=== PATIENT | male | born 1990 | race Caucasian/White ===

== ENCOUNTER 2020-03-15 17:30 | Outpatient (CLI) | payer OTHER ==
--- NOTE | 2020-03-15 12:49 | SLEEP CARE CONSULTATION ---
Information from patient questionnaire entered by Aviva Pham. I have reviewed and concur with the information entered by Aviva Pham. This document represents the service I personally performed and the decisions made by me, Vaughn Glass MD, [facility]. History of Present Illness Service Date and Time: 03/15/2020 1040 Reason for Visit: New patient Chief Complaint: reports: Insomnia Date of Onset: 2009 Usual bedtime: 2029 Time it takes to fall asleep: 4-7 hours Number of times waking at night: 0 Toss, Turn, or Twitch while sleeping: Yes Recalls having dreams: No Usually gets out of bed at: 0545 Morning headache: No Sleepy or fatigued during the day: Yes (sometimes) Takes day naps: No Dreams during day naps: No Prior sleep studies: No Additional HPI information: To minimize the risk of COVID-19 exposure, the patient has requested and consented to this telephone visit. The patient also agrees to having his insurance billed. I had the pleasure of seeing Mr. Atnunez today regarding the possibility of him having a sleep disorder. As you know, he is a 30 year old gentleman who complains of insomnia for the past 10 years. He takes diphenhydramine. The patient tells me that he normally goes to bed around 8:30 pm, and it takes him approximately 4 7 hours to fall asleep. He has been told that he snores loudly at night. He has never been observed to stop breathing in his sleep. However, he sleeps alone. He can recall waking up on the average of 0 times during the night. There is not a lot of tossing and turning in his sleep. No somniloquy (sleep talking) or somnambulism (sleep walking). Generally there is no recollection of dreams. In the morning he usually gets up out of the bed around 5:30 a.m. (8 a.m.) not feeling refreshed nor rested. He usually does not have a morning headache. During the day he occasionally feels sleepy and fatigued. His score on [place] Sleepiness Scale is 2 out of 24. He has never fallen asleep while driving nor has had any accident due to sleepiness. He usually does not take naps during the day. He has never had sleep paralysis, experienced cataplexy or symptoms of restless leg syndrome. He reports having impaired concentration during the day. Subjective Initial [place] Sleepiness Scale score: 2 (in 2020) Social History The patient's occupation is active . Patient is Single and lives in [place]. Have you smoked in the past 12 months: No Years of smokin Quit date: 08/2019 Alcohol use: No Caffeine use: Yes Caffeine amount and frequency: 1-2 Red Bulls in AM Allergies and Home Medications Drug allergies reviewed: Yes (NKDA) Home medication list reviewed: Yes (diphenhydramine) Review of Systems Cardiovascular: denies: high blood pressure, palpitations, chest pain, irregular heart rate or pulse, leg or foot swelling, have to sleep sitting up, other Respiratory: denies: shortness of breath, wheeze, sputum production, chronic cough, other Gastrointestinal: denies: heartburn, difficulty swallowing, nausea, vomitting, diarrhea, abdominal pain, other Urinary: denies: incontinence, frequency, urgency, impotence, other Neurological: denies: headaches, seizure, head trauma, disorientation, speech dysfunction, gait or balance problems, fainting or unconsciousness, other Psychiatric: denies: Attention Deficit Hyperactivity, anxiety, depression, mood disorder, claustrophobia, other Ear/Nose/Throat: reports: sinus problems, wisdom teeth removed Endocrine: denies: thyroid disease, history of goiter, sluggishness, too hot or cold, excessive thirst, increased appetite, increased urination, unexplained weakness, other Musculoskeletal: reports: joint pain Immunologic: denies: sneezing, rash, itching, allergies to food or environment, other Physical Exam Vital signs obtained and entered by: N/A Height: 5 ft 10 in Weight: 180 lb Body Mass Index: 25.8 BMI Classification: Overweight Impression and Plan IMPRESSION: 1. Possible Obstructive Sleep Apnea, as suggested by history of loud and irregular snoring, unrefreshed sleep, cognitive impairment, and occasional daytime hypersomnolence. Pathophysiology of sleep-disordered breathing was discussed. I recommend proceeding to polysomnography to confirm the diagnosis and to assess severity. I informed the patient of what the sleep studies involve and after some discussion, he agreed to proceed. 2. 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 Because his spontaneous wakeup time on the weekends is 8:30 am, his physiologic bedtime is not until around midnight. Therefore, going to bed at 8:30 pm is at least 3.5 hours too early. The solution is delay bedtime and get up the same time every day, especially on the weekends. I advised him get up at 5:30 am every day, not go to bed until 10:30 pm. This gives him 7 hours for sleepinga lot more than his reported average of 4 hours a night of sleep. If he can adhere to this schedule, his insomnia should resolve in 3 4 weeks. Plan: 1. Schedule an in-laboratory polysomnography. 2. Maintain a regular wake up time and spend no more than 7 hours in bed at night. Avoid naps. He will try to not go to bed any earlier than 10:30 pm and wake up no later than 5:30 am, weekends included. 3. Return in 1 to 2 weeks after the study to discuss results and initiate therapy. Visit Type: Telehealth Video Video Type: Doximity Patient Location: Home Location of Provider: Home Patient agrees and consents to this telehealth visit type: Yes Patient agrees to have their insurance billed: Yes Time Spent with Patient (minutes): 15 Provider Statement: I spent 100% of the Telehealth Video Call with the patient with greater than 50% spent counseling the patient and coordination of care.
== END 2020-03-15 17:31 | disposition home or self-care (01) ==
LOC: SC 17:30
PROVIDERS: ATTEND Internal Medicine Pulmonary Disease
DX: R06.83 Snoring (principal); G47.00 Insomnia, unspecified; R41.89 Other symptoms and signs involving cognitive functions and awareness; G47.8 Other sleep disorders; G47.10 Hypersomnia, unspecified; E66.3 Overweight; Z68.25 Body mass index [BMI] 25.0-25.9, adult

== ENCOUNTER 2020-05-30 20:33 | Outpatient (CLI) | payer OTHER | END 2020-05-30 20:34 | disposition home or self-care (01) | LOC: SC 20:33 | PROVIDERS: ATTEND Internal Medicine Pulmonary Disease | DX: R06.83 Snoring (principal); G47.8 Other sleep disorders; G47.10 Hypersomnia, unspecified; F51.04 Psychophysiologic insomnia | CPT/HCPCS: 95810 ==

== ENCOUNTER 2020-06-06 12:44 | Outpatient (CLI) | payer OTHER ==
--- NOTE | 2020-06-06 15:08 | SLEEP CARE CONSULTATION ---
Information from patient questionnaire entered by Carmelita Pina. I have reviewed and concur with the information entered by Carmelita Pina. This document represents the service I personally performed and the decisions made by me, Vaughn Glass MD, [facility]. History of Present Illness Service Date and Time: 06/06/2020 1244 Initial [place] Sleepiness Scale score: 2 (in 2019) Current [place] Sleepiness Scale score: 0 Additional HPI information: HPI: Mr. Antunez returns for a follow up of the sleep study he had on 05/30/20. The polysomnography was terminated after 43 minutes per patient request. He said he could not fall asleep with the wires on him. The patient does not to have further testing done. He says that his main complaint is sleep onset insomnia. Despite our discussion in February on how to improve his insomnia, he has not tried to change anything. Sleep Study - Results Type of Sleep Study: Polysomnography Prior sleep studies: No Allergies and Home Medications Drug allergies reviewed: Yes Home medication list reviewed: Yes Review of Systems Review of systems same as previous: Yes Physical Exam Vital signs obtained and entered by: To minimize the risk of COVID-19 exposure, detailed exam was not performed. Height: 5 ft 10 in Weight: 180 lb Body Mass Index: 25.8 BMI Classification: Overweight Impression and Plan IMPRESSION: 1. Insomnia, psychophysiological. As mentioned on his initial visit note, he goes to bed too early at 8 pm and wakes up 4 hours differently between weekdays and weekends. On weekdays he wakes up at 5 am but on weekends, 9 am. I explained to him that this is equivalent to going to work [place] every Saturday and crossing the time zones back on Saturday (imagine living in [place] but working in [facility]). Also, going to bed at 8 pm is too early even if he has to wake up at 5 am (I wonder if there is a component of depression because a young person should not want to go to bed at that time). I advised him to keep a regular wake up time and spend no more than 8 hours in bed. In his case, bedtime at 9 pm (not any earlier) and wakeup time at 5 am (not any later) would work. PLAN: 1. Maintain a regular wake up time and spend no more than 8 hours in bed at night. Avoid naps. He was made aware that this will take at least 2 3 weeks to work. 2. Return for a follow up in 2 3 months if still has insomnia. Visit Type: In Office Time Spent with Patient (minutes): 20 Provider Statement: I spent 100% of the Face to Face Visit with the patient with greater than 50% spent counseling the patient and coordination of care.
== END 2020-06-06 12:45 | disposition home or self-care (01) ==
LOC: SC 12:44
PROVIDERS: ATTEND Internal Medicine Pulmonary Disease
DX: F51.04 Psychophysiologic insomnia (principal); E66.3 Overweight; Z68.25 Body mass index [BMI] 25.0-25.9, adult
CPT/HCPCS: 99212; 99213

== ENCOUNTER 2023-05-20 06:15 | Emergency (ER) | payer OTHER ==
[2023-05-20] MEDS ORDERED: ACETAMINOPHEN 325 MG TABLET PO STA (06:29)
[2023-05-20] MEDS ORDERED: SODIUM CHLORIDE 0.9% 2,500 ML IV STA (06:42)
[2023-05-20 06:45] LABS: BASOPHILS # (AUTO) 0.1 10^3/uL (0.0-0.1); BASOPHILS % (AUTO) 0.5 %; EOSINOPHILS # (AUTO) 0.1 10^3/uL (0.0-0.7); EOSINOPHILS % (AUTO) 0.4 %; HCT - HEMATOCRIT 46.6 % (42.0-52.0); HGB - HEMOGLOBIN 15.7 g/dL (14.0-18.0); LYMPHOCYTES # (AUTO) 0.8 10^3/uL (1.5-3.5); LYMPHOCYTES % (AUTO) 4.2 %; MEAN CORPUSCULAR HEMOGLOBIN 28.2 pg (27.0-31.0); MEAN CORPUSCULAR HGB CONC 33.7 g/dL (32.0-36.0); MEAN CORPUSCULAR VOLUME 83.7 fL (80.0-94.0); MEAN PLATELET VOLUME 9.4 fL (7.4-11.4); MONOCYTES # (AUTO) 1.1 10^3/uL (0.0-1.0); MONOCYTES % (AUTO) 5.8 %; NEUTROPHILS # (AUTO) 16.4 10^3/uL (1.5-6.6); NEUTROPHILS % (AUTO) 88.6 %; PLT - PLATELET COUNT 425 10^3/uL (130-450); RED BLOOD COUNT 5.57 10^6/uL (4.70-6.10); RED CELL DISTRIBUTION WIDTH 11.6 % (12.0-15.0); WHITE BLOOD COUNT 18.5 x10^3/uL (4.8-10.8)
[2023-05-20] MEDS ORDERED: MORPHINE 2 MG/ML CARPUJECT IVP STA ×2 (07:11→09:30)
[2023-05-20] MEDS ORDERED: ONDANSETRON 4 MG/2 ML VIAL IVP STA (07:11)
--- NOTE | 2023-05-20 07:14 | ED Physician Documentation ---
History of Present Illness - Stated complaint Stated Complaint: ABD PX - Chief complaint Chief Complaint: Abd Pain - Additonal information Additional information: Patient 33-year-old male presenting to the emergency department with chief com plaint abdominal pain. Reports approximately a 100 hours began having epigastric and mid abdominal pain that subsequently radiated to his right lower quadrant. Regrows it as a stabbing pain that is made worse with physical activity. Denies previous abdominal surgeries. Reports nausea without vomiting. Denies changes in bowel or bladder habit. Review of Systems Constitutional: reports: Fever Eyes: denies: Loss of vision Ears: denies: Loss of hearing Nose: denies: Rhinorrhea / runny nose Throat: denies: Dental pain / toothache Cardiac: denies: Chest pain / pressure Respiratory: denies: Dyspnea GI: reports: Abdominal Pain, Nausea. denies: Vomiting, Constipation, Diarrhea : denies: Dysuria Skin: denies: Rash PD PAST MEDICAL HISTORY - Past Medical History Past Medical History: Yes - Past Surgical History Past Surgical History: Yes Derm: Other - Present Medications Home Medications: Ambulatory Orders Medication Instructions Recorded Confirmed No Known Home Medications 02/08/13 05/20/23 - Allergies Allergies/Adverse Reactions: Allergies Allergy/AdvReac Type Severity Reaction Status Date / Time No Known Drug Allergies Allergy Verified 05/20/23 06:26 - Social History Does the pt smoke?: Yes Smoking Status: Current every day smoker Does the pt drink ETOH?: No Does the pt have substance abuse?: No - Immunizations Immunizations are current?: Yes - POLST Patient has POLST: No PD ED PE NORMAL - Vitals Vital signs reviewed: Yes (Tachycardic, mildly hypertensive.) - General General: Alert and oriented X 3, No acute distress, Well developed/nourished - HEENT HEENT: Atraumatic, PERRL - Neck Neck: Supple, no meningeal sign - Cardiac Cardiac: RRR, No murmur, No gallop - Respiratory Respiratory: No respiratory distress - Abdomen Abdomen: Normal bowel sounds, Other (Right lower quadrant tenderness to palpation with guarding. 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, No motor deficit, Normal speech Results - Vitals Vitals: Vital Signs - 24 hr 05/20/23 05/20/23 05/20/23 06:15 07:00 09:00 Temperature 37.7 C Heart Rate 143 H 117 H 94 Respiratory 20 18 20 Rate Blood Pressure 144/106 H 111/88 H 130/85 H O2 Saturation 97 98 96 Oxygen O2 Source Room air - Labs Labs: Laboratory Tests 05/20/23 05/20/23 05/20/23 06:35 06:35 06:45 WBC 18.5 H RBC 5.57 Hgb 15.7 Hct 46.6 MCV 83.7 MCH 28.2 MCHC 33.7 RDW 11.6 L Plt Count 425 MPV 9.4 Neut # (Auto) 16.4 H Lymph # (Auto) 0.8 L Morrison # (Auto) 1.1 H Eos # (Auto) 0.1 Baso # (Auto) 0.1 Absolute Nucleated RBC 0.00 Nucleated RBC % 0.0 Sodium 137 Potassium 3.9 Chloride 101 Carbon Dioxide 26 Anion Gap 10.0 BUN 13 Creatinine 1.2 Estimated GFR (MDRD) 69 L Glucose 131 H Lactic Acid < 0.2 L Calcium 9.3 Total Bilirubin 0.5 AST 24 ALT 34 Alkaline Phosphatase 106 Total Protein 7.5 Albumin 4.3 Globulin 3.2 Albumin/Globulin Ratio 1.3 Lipase 19 Urine Color Urine Clarity Urine pH Ur Specific [place] Urine Protein Urine Glucose (UA) Urine Ketones Urine Occult Blood Urine Nitrite Urine Bilirubin Urine Urobilinogen Ur Leukocyte Esterase Ur Microscopic Review Urine Culture Comments 05/20/23 08:13 WBC RBC Hgb Hct MCV MCH MCHC RDW Plt Count MPV Neut # (Auto) Lymph # (Auto) Morrison # (Auto) Eos # (Auto) Baso # (Auto) Absolute Nucleated RBC Nucleated RBC % Sodium Potassium Chloride Carbon Dioxide Anion Gap BUN Creatinine Estimated GFR (MDRD) Glucose Lactic Acid Calcium Total Bilirubin AST ALT Alkaline Phosphatase Total Protein Albumin Globulin Albumin/Globulin Ratio Lipase Urine Color YELLOW Urine Clarity CLEAR Urine pH 6.0 Ur Specific [place] 1.015 Urine Protein NEGATIVE Urine Glucose (UA) NEGATIVE Urine Ketones NEGATIVE Urine Occult Blood NEGATIVE Urine Nitrite NEGATIVE Urine Bilirubin NEGATIVE Urine Urobilinogen 0.2 (NORMAL) Ur Leukocyte Esterase NEGATIVE Ur Microscopic Review NOT INDICATED Urine Culture Comments NOT INDICATED PD Medical Decision Making - ED course Complexity details: reviewed results, considered differential, d/w patient, d/w clinical application consultant ED course: Patient 33-year-old male presenting to the emergency department with 1 day history of right lower quadrant abdominal pain. Tachycardic on arrival to the emergency department. Notable tenderness in the right lower quadrant with positive Rovsing's, psoas and obturator signs. Labs demonstrate significant leukocytosis but no electrolyte abnormality, hepatic or renal dysfunction. CT of the abdomen pelvis confirms acute appendicitis without perforation or local abscess. Discussed care with Dr. Gonsalez, general surgery at [facility] who graciously agrees to accept the patient. Patient given 2 doses morphine 4 mg, Zofran, IV hydration, as well as doses Rocephin and Flagyl. Transferred from our facility to [facility] for further evaluation and treatment. Departure - Departure Disposition: 02 Transfer Acute Care Hosp Clinical Impression: Acute appendicitis Forms: PCP List
[2023-05-20 07:32] LABS: ALBUMIN 4.3 g/dL (3.2-5.5); ALBUMIN/GLOBULIN RATIO 1.3 (1.0-2.2); BILIRUBIN,TOTAL 0.5 mg/dL (0.2-1.0); CALCIUM 9.3 mg/dL (8.5-10.3); CREATININE 1.2 mg/dL (0.6-1.3); POTASSIUM 3.9 mmol/L (3.5-4.5); TOTAL PROTEIN 7.5 g/dL (6.4-8.9)
[2023-05-20] MEDS ORDERED: iohexoL-300 100 ML VIAL IVP ONE (07:51)
[2023-05-20 08:19] LABS: BILIRUBIN,URINE NEGATIVE (NEGATIVE); GLUCOSE, URINE (UA) NEGATIVE (NEGATIVE); KETONES,URINE (UA) NEGATIVE (NEGATIVE); LEUKOCYTE ESTERASE, URINE NEGATIVE (NEGATIVE); NITRITE,URINE NEGATIVE (NEGATIVE); OCCULT BLOOD,URINE NEGATIVE (NEGATIVE); PROTEIN,URINE NEGATIVE (NEGATIVE); UROBILINOGEN,URINE 0.2 (NORMAL) E.U./dL (NORMAL)
[2023-05-20] MEDS ORDERED: cefTRIAXone 1 GM in SODIUM CHLORIDE 0.9% MINIBAG 100 ML IV STA (08:20)
[2023-05-20] MEDS ORDERED: metroNIDAZOLE 500 MG/100 ML 500 MG/100 ML BAG IV ONE (08:20)
[2023-05-20 08:21] LABS: CLARITY,URINE CLEAR (CLEAR)
--- NOTE | 2023-05-20 08:21 | CT Report ---
PROCEDURE: ABDOMEN/PELVIS W INDICATIONS: RLQ abd pain CONTRAST: 100mL Omni 300 TECHNIQUE: After the administration of intravenous contrast, 5 mm thick sections acquired from the diaphragms to the symphysis. 5 mm thick coronal and sagittal reformats were acquired. For radiation dose reducti on, the following was used: automated exposure control, adjustment of mA and/or kV according to tejas ent size. COMPARISON: None. FINDINGS: Image quality: Excellent. Lung bases and heart: Mild dependent atelectasis is seen. Liver: No solid mass. Gallbladder and biliary tree: Within normal limits Spleen: Spleen is mildly enlarged, measuring 14 cm craniocaudal. Pancreas: No pancreatic ductal dilation. Adrenals: No adrenal nodule. Kidneys and ureters: No hydronephrosis. No renal cystic lesion which requires follow up. No solid mas s. Bowel and peritoneum: The appendix is abnormal, measuring up to 11 mm in caliber. Its wall is mildly hyperenhancing. Mild surrounding inflammatory change can be seen. No free air or significant free fluid can be seen. No adjacent abscess can be seen. No dilated loops of small bowel can be seen. No significant colonic abnormality can be seen. The stomach is relatively decompressed at the time of this study, limiting its evaluation. Lymph nodes: No central or retroperitoneal adenopathy. Vessels: No infrarenal aortic aneurysm. PELVIS Reproductive organs: Unremarkable. Bladder: No abnormal wall thickening, accounting for underdistension. Pelvic lymph nodes: No pelvic adenopathy by size criteria. Bones: No aggressive osseous abnormality. Other: No significant ventral or inguinal hernia. IMPRESSION: Acute appendicitis, without findings of perforation or abscess. Additional findings: Mild splenomegaly Note: Case discussed by telephone with Dr. Gardner at 8:19 AM [place] time on 05/20/2023. Reviewed by: Michael Arshad MD on 05/20/2023 7:20 AM [facility] Approved by: Michael Arshad MD on 05/20/2023 7:20 AM [facility] Station ID: [id number]
[2023-05-20 09:49] VITALS: BP 130/85; O2SAT 96
== END 2023-05-20 10:24 | disposition short-term general hospital (02) ==
LOC: ED 06:15
DX: K35.80 Unspecified acute appendicitis (principal); F17.200 Nicotine dependence, unspecified, uncomplicated
CPT/HCPCS: 36415; 74177; 80053; 81003; 83605; 83690; 85025; 87040; 96365; 96368; 96375; 96376; 99284; 99285; A9270; Q9967; 81001; 87086

== ENCOUNTER 2023-05-20 10:10 | Outpatient (CLI) | payer OTHER | END 2023-05-20 23:59 | disposition short-term general hospital (02) | LOC: EMS 10:10 | PROVIDERS: ATTEND Student in an Organized Health Care Education/Training Program | DX: K37 Unspecified appendicitis (principal) | CPT/HCPCS: A0425; A0428 ==